=== PATIENT | male | born 1975 | race Caucasian/White ===

== ENCOUNTER 2016-09-15 11:01 | Emergency (ER) | payer BC ==
[~2016-09-15] VITALS: Ht 185.4 cm; Wt 96.6 kg
[2016-09-15 12:11] LABS: HEMATOCRIT 37.4 % (38.0-50.0); MCH 30.4 PG (29.0-34.0); MCHC 35.6 G/DL (30.0-36.0); MCV 85.6 FL (86-99); MEAN PLAT.VOLUME 11.2 uM^3 (9.0-12.4); PLATELET COUNT 211 K/uL (156-360); RBC DIS.WIDTH-CV 11.2 % (11.8-14.6); RBC DIS.WIDTH-SD 34.5 % (39-53); RED BLOOD COUNT 4.37 M/uL (4.00-5.50); WHITE BLOOD COUNT 2.9 K/uL (4.1-10.2)
[2016-09-15 12:34] LABS: CHLORIDE 108 mEq/L (99-109); POTASSIUM 3.7 mEq/L (3.7-5.4)
[2016-09-15 12:35] LABS: SODIUM 141 mEq/L (136-147)
[2016-09-15 12:36] LABS: GLUCOSE 97 mg/dL (70-99)
[2016-09-15 12:38] LABS: ANION GAP 13 MEQ/L (2-14)
[2016-09-15 12:40] LABS: GFR ESTIMATE (CALCULATED) > 59 mL/min/
[2016-09-15 12:41] LABS: UREA NITROGEN (BUN) 7 mg/dL (9-23)
[2016-09-15 13:46] VITALS: BP 139/85
== END 2016-09-15 13:52 | disposition home or self-care (01) ==
LOC: EME 11:01
PROVIDERS: Emergency Medicine
DX: J06.9 Acute upper respiratory infection, unspecified (principal)
CPT/HCPCS: 71020; 80048; 85027; 99281; 99284